=== PATIENT | female | born 1965 | race Caucasian/White ===

== ENCOUNTER 2017-11-15 11:38 | Emergency (ER) | payer OTHER ==
--- NOTE | 2017-11-15 11:53 | ED CRITICAL CARE ---
History of Present Illness General Chief Complaint: Cardiopulmonary Resuscitation Stated Complaint: BIBA CARDIAC ARREST Source: family, EMS Exam Limitations: clinical condition Vital Signs & Intake/Output Vital Signs & Intake/Output Vital Signs Date Time Temp Pulse Resp B/P B/P Pulse O2 O2 Flow FiO2 Mean Ox Delivery Rate 11/15 1340 11/15 1330 98 Ventilator 11/15 1230 11/15 1155 100 11/15 1145 60/0 Allergies Coded Allergies: No Known Allergies (11/15/17) Reconcile Medications Citalopram Hydrobromide (Citalopram HBr) 20 MG TABLET 1 TAB PO DAILY MENTAL HEALTH (Reported) Pantoprazole Sodium 20 MG TABLET.DR 1 TAB PO DAILY GI (Reported) Progesterone,Micronized (Progesterone) 100 MG CAPSULE 1 CAP PO QHS UNKNOWN ( Reported) Triage Nurses Notes Reviewed? yes HPI: Patient was laying on her bed with her boyfriend when SHE WENT UNRESPONSIVE. SHE WAS PULSELESS AND APNEIC. HE STARTED CPR. PLEASE DEPARTMENT FOLLOWED BY EMS ARRIVED. PATIENT WAS IN A V. FIB. PATIENT WAS SHOCKED TWICE INTO A ACCOUNT ADMINISTRATOR. PATIENT RECEIVED 300 MG OF AMIODARONE WELL EPINEPHRINE 1 MG FOR A TOTAL OF 6 DOSES. PATIENT WAS BROUGHT TO THE EMERGENCY DEPARTMENT IN A [facility]. Per family patient has been on a lot of hormone replacement medications by her news content specialist. Past History Travel History Traveled to [place] past 21 day No Medical History Any Pertinent Medical History? see below for history Cardiovascular: "LEAKY VALVE" Surgical History Surgical History: non-contributory Psychosocial History Tobacco Use: Cognitive Impairment Family History Hx Contributory? No Review of Systems Review of Systems Constitutional: Reports: see HPI. Physical Exam Physical Exam General Appearance: intubated Head: atraumatic Eyes: Bilateral: other (DILATED). Ears, Nose, Throat, Mouth: moist mucous membrane Neck: supple Respiratory: lungs clear Neurologic/Psych: UNRESPONSIVE Core Measures ACS in differential dx? Yes CVA/TIA Diagnosis No Sepsis Present: No Sepsis Focused Exam Completed? No Progress Differential Diagnoses I considered the following diagnoses in my evaluation of the patient: [Cardiac arrest] Plan of Care: Orders Procedure Date/time Status Ramsay, Insertion/Removal/Asses 11/15 1416 Active CULTURE,URINE 11/15 1416 Active ECHOCARDIOGRAM 11/15 1220 Active Telemetry/Embedded Case Manager 11/15 1151 Active TROPONIN LEVEL 11/15 1151 Complete COMPREHENSIVE METABOLIC PANEL 11/15 1151 Complete CBC WITHOUT DIFFERENTIAL 11/15 1151 Complete VENTILATOR PARAMETERS 11/15 1150 Complete EKG 11/15 1142 Active Current Medications Sig/Tierney Start time Last Medication Dose Stop Time Status Admin Norepinephrine 4 MG ONCE ONE 11/15 1430 AC (Levophed Drip) 11/15 1431 Sodium Chloride 250 ML (Normal Saline 0.9%) Amiodarone HCl/ 150 MG ONCE ONE 11/15 1415 AC Dextrose 11/15 1424 (Nexterone) N/A 1 UNIT (No Carrier) Magnesium Sulfate 2 GM ONCE ONE 11/15 1415 AC (Mag Sulfate in D5) 11/15 1814 Dextrose/Water 100 ML (D5W) Sodium Bicarbonate 150 MEQ CONTINOUS INFUSION 11/15 141 UNir (Sodium Bicarbonate 8.4%) Dextrose/Water 1,000 ML (D5W 1000) Alteplase, 50 MG EVERY 0 HRS 11/15 1345 AC Recombinant 11/16 1346 (Activase 100 MG Inj) Alteplase, See Dose BOLUS ONE 11/15 1300 CAN Recombinant Insts (1) 11/15 1301 (Activase 100 MG Inj) Alteplase, See Dose ONCE ONE 11/15 1300 CAN Recombinant Insts (2) 11/15 1301 (Activase 100 MG Inj) Amiodarone HCl/ 360 MG Q12H 11/15 1200 UNVr 11/15 Dextrose 1235 (Nexterone) N/A 1 UNIT (No Carrier) Dose Instructions: (1)Alteplase, Recombinant (Activase 100 MG Inj): Administer over one minute (2)Alteplase, Recombinant (Activase 100 MG Inj): Infuse over 60 minutes Laboratory Tests 11/15/17 1154: Anion Gap 22 H, Estimated GFR 58 L, BUN/Creatinine Ratio 16.0, Glucose 430 H, Calcium 8.1 L, Total Bilirubin 0.4, AST 372 H, ALT 497 H, Alkaline Phosphatase 50, Troponin I 0.05, Total Protein 5.2 L, Albumin 2.8 L, Globulin 2.4, Albumin/Globulin Ratio 1.2, CBC w Diff MAN DIFF ORDERED, RBC 4.15 L, MCV 87.4, MCH 28.7, MCHC 32.8 L, RDW 13.8, MPV 8.6, Gran % 17.2 L, Lymphocytes % 78.4 H, Monocytes % 3.6, Eosinophils % 0.6, Basophils % 0.2, Absolute Granulocytes 1.1 L, Segmented Neutrophils 10 L, Band Neutrophils 6 H, Absolute Lymphocytes 4.9 H, Lymphocytes 78 H, Monocytes 5, Absolute Monocytes 0.2, Absolute Eosinophils 0, Absolute Basophils 0, Metamyelocytes 1, Platelet Estimate VERIFIED BY SMEAR, Normocytic RBCs VERIFIED, Normochromic RBCs VERIFIED Microbiology 11/15 1416 URINE ROUT: Urine Culture - ORD Diagnostic Imaging: Viewed by Me: Radiology Read. Discussed w/RAD: Radiology Read. Initial ED EKG: AFIB, LBBB Comments: Patient had return of spontaneous circulation. Throughout her ED course patient remained hypotensive. Patient went back into V. fib multiple times requiring electrocardioversion. Amiodarone drip was initiated. Patient will require 3 pressors to maintain and obtain a blood pressure. Dr. Shannon at the bedside. At this time the patient will be transferred to [facility] for intensive management. The thing that appeared to work the past was intravenous TPA at a dose for pulmonary embolus with cardiac arrest. After the second dose of that she went back into A. fib with aberrancy and maintained her blood pressure. There are no further episodes of V. fib or V. tach after the TPA. Departure Departure Disposition: OTHER GENERAL HOSPITAL (ACUTE) Condition: Critical Clinical Impression Primary Impression: Cardiac arrest Departure Forms: General Discharge Information Critical Care Note Critical Care Note Critical Care Time: mins: (120 MIN) Total CPR Time (mins): 40
[2017-11-15 12:16] LABS: ABSOLUTE BASOPHIL COUNT 0 /CUMM (0.0-0.2); ABSOLUTE EOSINOPHIL COUNT 0 /CUMM (0.0-0.7); ABSOLUTE GRANULOCYTE CT 1.1 /CUMM (1.4-6.5); ABSOLUTE LYMPH COUNT 4.9 /CUMM (1.2-3.4); ABSOLUTE MONOCYTE COUNT 0.2 /CUMM (0.10-0.60); BASOPHIL % 0.2 % (0.0-2.0); EOSINOPHIL % 0.6 % (0-5); GRANULOCYTE % 17.2 % (42.2-75.2); HEMATOCRIT 36.3 % (37-47); MEAN CORPUSCULAR HGB 28.7 PG (27.0-31.0); MEAN CORPUSCULAR HGB CONC 32.8 G/DL (33.0-37.0); MEAN CORPUSCULAR VOLUME 87.4 FL (81.0-99.0); MEAN PLATELET VOLUME 8.6 FL (7.4-10.4); PLATELET COUNT 153 /CUMM (130-400); RBC DISTRIBUTION WIDTH 13.8 % (11.5-14.5); RED BLOOD CELL CT 4.15 /CUMM (4.20-5.40); WHITE BLOOD CELL COUNT 6.2 /CUMM (4.8-10.8)
[2017-11-15] MEDS ORDERED: CITALOPRAM HBR20 MG PO (12:22)
[2017-11-15] MEDS ORDERED: PROGESTERONE100 M2 PO (12:22)
[2017-11-15] MEDS ORDERED: PANTOPRAZOLE SO20 M1 PO (12:22)
--- NOTE | 2017-11-15 13:58 | RADIOLOGY REPORT ---
EXAMINATION: XR PORTABLE CHEST CLINICAL INFORMATION: Status post cardiac arrest. COMPARISON: None TECHNIQUE: Portable frontal view of the chest was obtained. FINDINGS: Endotracheal tube is in satisfactory position approximately 2.5 cm above the jelly. The heart is enlarged and there are patchy airspace opacities bilaterally. The pulmonary vasculature is at the upper limits of normal. No pleural effusion. No acute osseous finding. IMPRESSION: Satisfactorily positioned endotracheal tube. Cardiomegaly with patchy airspace opacities bilaterally. The airspace opacities are nonspecific and may represent sequela volume overload, multifocal pneumonia, or sequela of recent cardiac arrest.
[2017-11-15 14:32] VITALS: BP 50/0
--- NOTE | 2017-11-15 15:12 | Cons- Cardiology ---
General Information and HPI Consulting Request Date of Consult: 11/15/17 Requested By: Omar Calloway History of Present Illness: This patient is a 51 year old female with a history of a leaky cardiac valve who was brought to the ER for treatment of a cardiac arrest after being found unresponsive. The patient was with her in bed when he suddenly noted that she was unresponsive. He called EMS and began chest compressions and mouth to mouth resuscitation. She was shocked twice and given Amiodarone and Epinephrine enroute to the ER. In the ER the patient was unresponsive and apneic with an ECG showing a LBBB with underlying atrial fibrillation. While in the ER the patient had repeated episodes of VT and a couple episodes of V. fib. She was given copious rounds of epinephrine, bicarbonate, magnesium and was shocked repeatedly as needed in addition to chest compressions. The patient was loaded with Amiodarone and started on IV lidocaine. She was also started on pressores including dopamine, neosynephrine and levophed. NS was also given. A stat echo showed reasonable contractility. I did note JVD and considered the possiblility of a massive pulmonary embolism. The patient was given TPA. Her rhythm and BP improved to the 70's. The patient was intubated during this event as well. The patient was then transfered to the phlebotomist medical lab assistant at [facility] for anticipated IABP and evaluation of the coronaries plus or minus pulmonary arteries to assess for an acute MT or PE respectively. Her anterior wall was eliecer on her echo which was a limited study. The patient was unresponsive throughout her time in the ER. Finally, it should be noted that this patient was recently started on hormone replacement therapy. Allergies/Medications Allergies: Coded Allergies: No Known Allergies (11/15/17) Home Med List: Citalopram Hydrobromide (Citalopram HBr) 20 MG TABLET 1 TAB PO DAILY MENTAL HEALTH (Reported) Pantoprazole Sodium 20 MG TABLET.DR 1 TAB PO DAILY GI (Reported) Progesterone,Micronized (Progesterone) 100 MG CAPSULE 1 CAP PO QHS UNKNOWN ( Reported) Review of Systems Review of Systems: A review of systems is unremarkable. Past History Travel History Traveled to [place] past 21 day No Medical History Cardiovascular: "LEAKY VALVE" Surgical History Surgical History: non-contributory Family History Family History Reviewed? Mother: heart disease Psychosocial History Smoking Status: Never Smoked ETOH Use: denies use Illicit Drug Use: UTD Exam & Diagnostic Data Vital Signs and I&O Vital Signs Date Time Temp Pulse Resp B/P B/P Pulse O2 O2 Flow FiO2 Mean Ox Delivery Rate 11/15 1432 50/0 11/15 1430 50/0 11/15 1430 70/0 11/15 1340 11/15 1330 100 11/15 1330 98 Ventilator 11/15 1230 11/15 1155 100 11/15 1145 96.0 88 20 60/0 100 Ventilator Intake & Output 11/15 1600 11/15 0800 11/15 0000 11/14 1600 11/14 0800 11/14 0000 Intake Total Output Total Balance Patient 176 lb Weight Weight Estimated Measurement Method Physical Exam: General: WD/overweight female in NAD; unresponsive Neck: +ve JVD Heart: tachycardic and irregular Lungs: clear anteriorly Abdomen: soft, obese, no obvious tenderness Extremities: no edema Assessment/Plan Assessment/Plan * This patient had the sudden onset of unresponsiveness without any complaints of any kind to her who was with her throughout the event. No chest discomfort was reported. Although she does have a newly discovered LBBB her first set of cardiac enzymes is normal and her echo did not show any focal regional wall motion abnormalities. An acute and massive PE is strongly suspected. The patient was given TPA and appeared to improve about 45 minutes after receiving this medication. She will be emergently transferred to [facility] for further management which is anticipated to be an IABP with cardiac cath and possible pulmonary angiography. Consult Acknowledgment - Thank you for your consult request.
--- NOTE | 2017-11-16 07:45 | ECHOCARDIOGRAM REPORT ---
ONEIL MEDRANO Age: 51 : 1965 Gender: F Exam Date: 11/15/2017 12:39 Exam Location: ER Ht (in): Wt (lb): BSA: BP: / Ordering Physician: Les Calloway MD Referring Physician: Travis Shannon MD, PhD Technologist: Madiha Saldivar RACHEL Room Number: ER#11 Indications: ARRHYTHMIAS Rhythm: ventricular tachycardia Technical Quality: fair FINDINGS Left Ventricle Moderately decreased EF of 30% without regional wall motion abnormalities. Right Ventricle The right ventricle is normal in size with decreased contractility. Right Atrium The right atrium is normal in size. Left Atrium The left atrium is normal in size. The interatrial septum is intact. Mitral Valve The mitral valve is normal in structure and function. There is moderate mitral regurgitation. Aortic Valve Structurally normal aortic valve without significant sclerosis or stenosis. There is no aortic regurgitation. Tricuspid Valve The tricuspid valve is normal in structure and function. There is mild tricuspid regurgitation. Pulmonary artery systolic pressure is normal. Pulmonic Valve Structurally normal pulmonic valve. There is mild pulmonic regurgitation. Pericardium Normal pericardium without effusion. No pleural effusion. Great Vessels The aortic arch and great vessels are not well seen. CONCLUSIONS 1. Moderately decreased EF of 30%. 2. Moderate mitral regurgitation. 3. Mild tricuspid regurgitation. 4. Mild pulmonic regurgitation. 5. This was a limited study performed during a cardiac arrest. Travis Shannon M.D. (Electronically Signed) Final Date: 16 November 2017 07:44 MEASUREMENTS (Male / Female) Normal Values DOPPLER TR Peak Velocity 189.0 cm/s TR Peak Gradient 14.3 mmHg
== END 2017-11-15 15:02 | disposition short-term general hospital (02) ==
LOC: ERH 11:38
PROVIDERS: Emergency Medicine
DX: I46.9 Cardiac arrest, cause unspecified (principal)
CPT/HCPCS: 1344; 1387; 71045; 87086; 93005; 93010; 93306; 94799; 96374; 96375; 96376; 99291; J0282; J1265; J7040; J7060